=== PATIENT | female | born 1965 | race Caucasian/White ===

== ENCOUNTER → 2023-12-15 07:24 | Outpatient (REF) | payer OTHER, SELFPAY ==
[2023-12-15 07:56] LABS: % Basophils 0.4 % (0-2); % Eosinophils 2.6 % (0-6); % Immature Granulocytes 0.2 % (0-0.5); % Lymphocytes 54.3 % (20.5-51.1); % Monocytes 5.9 % (1.7-9.3); % Neutrophils 36.6 % (42.2-75.2); Absolute Eosinophils 0.1 10^3/uL (0-0.7); Absolute Lymphocytes 2.5 10^3/uL (1.2-3.4); Absolute Monocytes 0.3 10^3/uL (0.1-0.6); Absolute Neutrophils 1.7 10^3/uL (1.4-6.5); Hematocrit 37.8 % (37.0-47.0); Hemoglobin 12.6 g/dL (12.0-16.0); Mean Corp Hgb Conc. 33.3 g/dL (33.0-37.0); Mean Corpuscular Hgb 30.7 pg (27.0-31.0); Mean Platelet Volume 9.6 fL (7.4-10.4); Nucleated Red Blood Cells % 0 %; Platelet Count 267 10^3/uL (130-400); Red Blood Cell Count 4.11 10^6/uL (4.20-5.40); Red Cell Dist. Width 12.5 % (11.5-14.5); White Blood Cell Count 4.6 10^3/uL (4.8-10.8)
[2023-12-15 08:02] VITALS: BP 124/66; BP_SYST 77
[2023-12-15 08:06] LABS: INR 1.02; PT 13.2 Sec (11.4-14.6)
[2023-12-15] MEDS: NSS (PRESERVATIVE FREE) 0.25 ML IV (08:17)
[2023-12-15] MEDS: ATIVAN 0.5 MG IV (08:17)
[2023-12-15 09:26] VITALS: BP 110/68
== END ==
LOC: RADI 07:24
PROVIDERS: ATTENDING PHYSICIAN Internal Medicine Hematology & Oncology; FAMILY PHYSICIAN Emergency Medicine
DX: C90.30 Solitary plasmacytoma not having achieved remission (principal); D47.2 Monoclonal gammopathy; Z01.812 Encounter for preprocedural laboratory examination
CPT/HCPCS: 88305; 88311; 88312; 36415; 38222; 77012; 85025; 85610; 88313; 88341; 88342